=== PATIENT | male | born 2000 | race Two or more races ===

== ENCOUNTER 2023-07-20 23:24 | Emergency (ER) | payer BC ==
[~2023-07-20] VITALS: Ht 167.6 cm; Wt 77.1 kg
[2023-07-21] MEDS ORDERED: KETO10TA2 PO (02:51)
== END 2023-07-21 02:59 ==
LOC: ER 23:24
DX: S29.8XXA Other specified injuries of thorax, initial encounter (principal); V49.9XXA Car occupant (driver) (passenger) injured in unspecified traffic accident, initial encounter; Y93.9 Activity, unspecified; Y92.9 Unspecified place or not applicable; Y99.9 Unspecified external cause status